=== PATIENT | male | born 1950 | race Two or more races ===

== ENCOUNTER 2018-04-29 05:50 | Inpatient (IN) | payer OTHER ==
[2018-04-29] VITALS (12 sets, daily range): BP systolic 102–149; BP diastolic 61–81
[~2018-04-29] VITALS: Ht 162.6 cm; Wt 75.3 kg
[2018-04-29] MEDS ORDERED: Vancomycin 1gm/D5W 275ml IVPB ONE ×2 (06:00)
[2018-04-29] MEDS ORDERED: Pantoprazole Inj IVP ONE (06:00)
[2018-04-29 06:50] LABS: INR 1.1 (0.9-1.1)
[2018-04-29] MEDS ORDERED: FISH OIL CAP1000 MG ORAL (07:03)
[2018-04-29] MEDS ORDERED: METFORMIN HCL1000 M1 ORAL (07:03)
[2018-04-29] MEDS ORDERED: ACTOS15 MG ORAL (07:03)
[2018-04-29] MEDS ORDERED: PROSCAR5 MG ORAL (07:03)
[2018-04-29] MEDS ORDERED: ATORVASTATIN CA10 MG ORAL (07:03)
[2018-04-29] MEDS ORDERED: Midazolam 2mg/2ml Inj ONE (07:06)
[2018-04-29] MEDS ORDERED: fentaNYL 100 mcg/2 mL IV ONE (07:06)
[2018-04-29] MEDS ORDERED: Pantoprazole Inj ONE (07:17)
[2018-04-29] MEDS ORDERED: Zemuron 50mg/5ml Inj IV ONE (07:18)
[2018-04-29] MEDS ORDERED: Succinylcholine 20mg/ml 10ml vial ONE (07:18)
[2018-04-29] MEDS ORDERED: Thrombin 5000 units spray kit TOPIC ONE (07:20)
[2018-04-29] MEDS ORDERED: Gelfoam Size TOPIC ONE ×2 (07:20→07:45)
[2018-04-29] MEDS ORDERED: Heparin 1000 units/ml 1ml Vial ONE (07:20)
[2018-04-29] MEDS ORDERED: Bacitracin Oint 15gm Tube TOPIC ONE (07:20)
[2018-04-29] MEDS ORDERED: Bupivacaine w/Epi 0.5% 30ml Vial INJ ONE (07:20)
[2018-04-29] MEDS ORDERED: Thrombin 5000 units TOPIC ONE (07:20)
[2018-04-29] MEDS ORDERED: Bacitracin 50000 Units Vial ONE (07:21)
[2018-04-29] MEDS ORDERED: Gelfoam Absorbable 1gm powder pkt TOPIC ONE (07:21)
[2018-04-29] MEDS ORDERED: Sterile Water Irrig 1000ml IRRIG ONE (07:30)
[2018-04-29] MEDS ORDERED: LR 1000ml ONE (07:30)
[2018-04-29] MEDS ORDERED: Neostigmine 1mg/ml 10ml Inj ONE (07:30)
--- NOTE | 2018-04-29 07:47 | Pre-Procedure Note/Attestation ---
Pre-Procedure Note/Attestation Complete Prior to Procedure Planned Procedure: bilateral Procedure Narrative: Posterior lumbar decompression L4-5 bilateral, with interspinous fusion and posterolateral arthrodesis with allograft, autograft and iliac crest bone marrow aspirate. Attestation I attest that I discussed the nature of the procedure; its benefits; risks and complications; and alternatives (and the risks and benefits of such alternatives ), prior to the procedure, with the patient (or the patient's legal bilingual inside sales representative). I attest that, if there was a reasonable possibility of needing a blood transfusion, the patient (or the patient's legal bilingual inside sales representative) was given the [facility] standardized written summary, pursuant to the Karthikeyan Nimmons Blood Safety Act ([place] Health and Safety Code # 1645, as amended). I attest that I re-evaluated the patient just prior to the surgery and that there has been no change in the patient's H&P, except as documented below: Imer Freedman MD Apr 29, 2018 07:47
[2018-04-29] MEDS ORDERED: NS Irrig 1000ml IRRIG ONE (07:52)
[2018-04-29] MEDS ORDERED: Morphine Sulfate 10mg/ml Inj ONE (08:44)
[2018-04-29] MEDS ORDERED: Glycopyrrolate 0.2mg/ml 1ml Vial ONE (08:46)
[2018-04-29] MEDS ORDERED: Phenylephrine 10mg/ml Vial ONE (08:52)
[2018-04-29] MEDS ORDERED: LR 1000ml 1,000 ML IVLG SCH (09:03)
--- NOTE | 2018-04-29 09:03 | Anethesia Preoperative Eval ---
Anesthesia Pre-op PMH/ROS General Date of Evaluation: Apr 29, 2018 Time of Evaluation: 07:22 Anesthesiologist: Carlito ASA Score: ASA 3 Mallampati Score Class I : Soft palate, uvula, fauces, pillars visible Class II: Soft palate, uvula, fauces visible Class III: Soft palate, base of uvula visible Class IV: Only hard plate visible Mallampati Classification: Class II Surgeon: Jasmina Diagnosis: Lumbar radiculopathy Surgical Procedure: L4-L5 laminotomy Anesthesia History: none Social History: current smoker Family History: no anesthesia problems Allergies: Coded Allergies: No Known Allergies (Unverified , 04/28/18) Medications: see eMAR Patient NPO?: Yes NPO Date: Apr 28, 2018 NPO Time: 2029 Past Medical History Cardiovascular: Reports: HTN - borderline, other - PVD R fem-pop bypass; Denies: CAD, CO, valve dz, arrhythmia Pulmonary: Reports: COPD - mild, life long h/o smoking Gastrointestinal/Genitourinary: Reports: GERD; Denies: CRI, ESRD, other Neurologic/Psychiatric: Reports: other - chronic pain; Denies: dementia, CVA, depression/anxiety, TIA Endocrine: Reports: DM - stable on pills; Denies: hypothyroidism, steroids, other HEENT: Reports: cataract (L), cataract (R) - s/p Sx Hematology/Immune: Denies: anemia, DVT, bleeding disorder, other Musculoskeletal/Integumentary: Reports: DJD; Denies: OA, RA, DDD, edema, other PMH Narrative: as above PSxH Narrative: Bilateral cataracts, R fem-pop bypass Anesthesia Pre-op Phys. Exam Physician Exam Last Vital Signs Date Time Temp Pulse Resp B/P (MAP) Pulse Ox O2 Delivery O2 Flow Rate FiO2 04/29/18 07:04 Room Air 04/29/18 06:38 97.8 58 18 149/79 (102) 97 Constitutional: NAD Neurologic: CN 2-12 intact Cardiovascular: RRR, no M/R/G Respiratory: CTA Gastrointestinal: S/NT/ND Airway Exam Mallampati Score: Class II MO: limited Neck: stiff ROM: limited Teeth: missing Dentures: upper, lower Anesthesia Pre-op A/P Labs Coagulation Test 04/29/18 06:15 Prothrombin Time 11.5 SEC (9.30-11.50) Prothromb Time International Ratio 1.1 (0.9-1.1) Activated Partial Thromboplast Time 27 SEC (23-33) Studies Pre-op Studies: EKG - NSR, CXR - WNL, PFTS - mild obstructive pattern Risk Assessment & Plan Assessment: ASA 3 Plan: GA with ETT prone position neuromonitoring Status Change Before Surgery: No Pre-Antibiotics Drug: Vanco 1gr Given Within 1 Hr of Incision: Yes Time Given: 08:20 Rajesh Esteban MD Apr 29, 2018 09:03
[2018-04-29] MEDS ORDERED: Acetaminophen (Non formulary) 100 ML IV ONE (09:15)
[2018-04-29] MEDS ORDERED: Ketorolac 30mg Inj IV PRN (09:15)
[2018-04-29] MEDS ORDERED: DiphenhydrAMINE 50mg/ml Inj IVP PRN (09:15)
--- NOTE | 2018-04-29 10:20 | Brief Operative Note ---
Immediate Post Operative Note Operative Note Chief Complaint: intactable low back pain. difficulty ambulating, radiculopathy Pre-op Diagnosis: 1. Intractable low back pain 2. Herniated disc and lumbar stenosis L4-5 3. lackk of improvement from conservative care and LEDSI Procedure: 1. Bilateral L4 hemilaminectomies, with central and lateral recess decompression. 2. bilteral foraminotomies, L4-5 3. Interspinous 12 mm titanium cage, Beneif with arthrodesis using two parallel plates 4. lamia and posterolateral arthrodesis, using allograft, autograft and iliac crest bone marrow aspirate. 5. Aspiration of bone marrow Right iliac crest 6. [place] of local bone from laminectomy 7. Microdissection with neurolysis of the L5 roots bilaterally 8. Neuromonitoring 9. Intra-op use, interpretation and supervision of fluoroscopy 10. plastic surgical closure of 6-cm lumbar incision Post-op Diagnosis: same as pre-op Findings: consistent w/pre-op dx studies Surgeon: Imer Freedman MD Financial Reporting Advisor: Khadar Smiley MD Anesthesiologist: Dr. Kellogg Anesthesia: general Specimen: none Complications: none Condition: stable Fluids: 700 cc Estimated Blood Loss: minimal Drains: none Implant(s) used?: Yes - Benefix interspinous device. Imer Freedman MD Apr 29, 2018 10:20
--- NOTE | 2018-04-29 10:24 | Immediate Post-Op Evaluation ---
Immediate Post-Op Evalulation Immediate Post-Op Evalulation Procedure: L4-L5 laminotomy with decompression and interbody fusion Date of Evaluation: Apr 29, 2018 Time of Evaluation: 10:22 IV Fluids: 800 Blood Products: none Estimated Blood Loss: 50 Urinary Output: 100 Blood Pressure Systolic: 138 Blood Pressure Diastolic: 76 Pulse Rate: 86 Respiratory Rate: 20 O2 Sat by Pulse Oximetry: 98 Temperature (Fahrenheit): 97.6 Pain Score (1-10): 1 Nausea: No Vomiting: No Complications none Patient Status: reacts, patent, extubated, none Hydration Status: adequate Rajesh Esteban MD Apr 29, 2018 10:24
[2018-04-29] MEDS ORDERED: traMADol 50mg tab ORAL PRN (10:30)
[2018-04-29] MEDS ORDERED: Milk of Magnesia 30ml Ud ORAL PRN (10:30)
[2018-04-29] MEDS ORDERED: HYDROmorphone 1mg/ml Carpuject IVP PRN (10:30)
[2018-04-29] MEDS: Hydromorphone 0.5mg/0.5ml inj IVP PRN ×2 (10:34→10:52)
--- NOTE | 2018-04-29 10:46 | General Progress Note ---
Progress Note Progress Note S/ Incisional pain controlled. Comfortable O/VS: Last 24 Hour Vital Signs Date Time Temp Pulse Resp B/P (MAP) Pulse Ox O2 Delivery O2 Flow Rate FiO2 04/29/18 10:34 58 16 127/70 98 Simple Mask 6 04/29/18 10:30 68 16 132/63 98 Simple Mask 6 04/29/18 10:25 80 16 147/81 98 Simple Mask 6 04/29/18 10:24 86 20 98 04/29/18 10:20 97.0 101 23 140/81 100 Simple Mask 6 04/29/18 07:04 Room Air 04/29/18 06:38 97.8 58 18 149/79 (102) 97 Alert and oriented x 3 Moves all extremities well dressing dry and intact Normal pulses in the upper and lowers doing well family updated lumbar brace Imer Freedman MD Apr 29, 2018 10:46
[2018-04-29] MEDS ORDERED: metFORMIN 500mg tab ORAL SCH (11:30)
[2018-04-29] MEDS ORDERED: Cyclobenzaprine 10mg Tab ORAL PRN (14:15)
--- NOTE | 2018-04-29 14:36 | General Progress Note ---
Progress Note Progress Note Neurosurgery S/ Pain well contolled. No leg pain Vs: Last 24 Hour Vital Signs Date Time Temp Pulse Resp B/P (MAP) Pulse Ox O2 Delivery O2 Flow Rate FiO2 04/29/18 11:15 97.8 56 15 124/65 98 Nasal Cannula 6 04/29/18 11:05 56 19 120/62 98 Simple Mask 6 04/29/18 11:04 97.3 04/29/18 10:52 54 15 102/62 98 Simple Mask 6 04/29/18 10:45 57 13 117/61 98 Simple Mask 6 04/29/18 10:34 58 16 127/70 98 Simple Mask 6 04/29/18 10:30 68 16 132/63 98 Simple Mask 6 04/29/18 10:25 80 16 147/81 98 Simple Mask 6 04/29/18 10:24 86 20 98 04/29/18 10:20 97.0 101 23 140/81 100 Simple Mask 6 04/29/18 07:04 Room Air 04/29/18 06:38 97.8 58 18 149/79 (102) 97 Alert and oriented x 4 Incision is dry and clean moves all extremities well PT D/c bernabe in am lumbar brace d/c planning reviewed with family and nursing Imer Freedman MD Apr 29, 2018 14:36
[2018-04-29] MEDS: Artificial Tears 1.4% Op Soln BOTH EYES SCH ×2 (15:33→18:28)
[2018-04-29] MEDS: NS w/KCl 20mEq 1,000 ML IV SCH (15:37)
[2018-04-29] MEDS: Acetaminophen (Non formulary) 100 ML IV SCH ×2 (15:42→21:55)
--- NOTE | 2018-04-29 15:43 | Diagnostic Imaging Report ---
Indication: Intraoperative imaging Comparison: None Findings: 3 fluoroscopic views of the lumbar spine were obtained. Localization image followed by placement of the interspinous prosthesis at L4-5 noted on fluoroscopically obtained images. IMPRESSION: Intraoperative imaging
[2018-04-29] MEDS ORDERED: Docusate 100mg cap ORAL SCH (18:00)
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
[2018-04-29] MEDS: Docusate Sod/Senna tab ORAL SCH (18:26)
[2018-04-29] MEDS: Vancomycin 1 GM in D5W 275 ML IVPB SCH (21:32)
[2018-04-30] MEDS: NS w/KCl 20mEq 1,000 ML IV SCH ×2 (04:52→15:41)
[2018-04-30 08:00] VITALS: BP 164/92
[2018-04-30 08:21] LABS: ANION GAP 6 mmol/L (5-15); BLOOD UREA NITROGEN 6 mg/dL (7-18); CALCIUM 8.2 MG/DL (8.5-10.1); CARBON DIOXIDE 28 MMOL/L (21-32); CHLORIDE 107 MMOL/L (98-107); CREATININE 0.8 MG/DL (0.55-1.30); POTASSIUM 4.2 MMOL/L (3.5-5.1); SODIUM 141 MMOL/L (136-145)
[2018-04-30] MEDS: Docusate Sod/Senna tab ORAL SCH ×2 (08:34→17:26)
[2018-04-30] MEDS: Vancomycin 1 GM in D5W 275 ML IVPB SCH (08:35)
[2018-04-30] MEDS: metFORMIN 500mg tab ORAL SCH (08:35)
[2018-04-30 09:50] VITALS: BP 151/82
[2018-04-30] MEDS: HYDROcodone/Acetamin 7.5/325 tab ORAL PRN (11:19)
--- NOTE | 2018-04-30 12:17 | 48 Hour Post Anesthesia Eval ---
Post Anesthesia Evaluation Procedure: L4-L5 laminotomy with decompression and interbody fusion Date of Evaluation: Apr 30, 2018 Airway: patent Nausea: No Vomiting: No Pain Intensity: 0 Hydration Status: adequate Cardiopulmonary Status: at baseline Mental Status/LOC: patient returned to baseline Post-Anesthesia Complications: 0 Follow-up care needed: N/A - further carre as per primary team Hina Mcginnis MD Apr 30, 2018 12:17
[2018-04-30 16:00] VITALS: BP 156/79
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
[2018-04-30] MEDS: Artificial Tears 1.4% Op Soln BOTH EYES PRN (17:27)
[2018-04-30 20:00] VITALS: BP 153/78
[2018-05-01 08:00] VITALS: BP 160/85
[2018-05-01] MEDS: Docusate Sod/Senna tab ORAL SCH ×2 (08:34→17:35)
[2018-05-01] MEDS: metFORMIN 500mg tab ORAL SCH (08:34)
[2018-05-01] MEDS: HYDROcodone/Acetamin 7.5/325 tab ORAL PRN ×2 (08:35→17:38)
[2018-05-01 10:18] VITALS: BP 138/77
[2018-05-01 12:00] VITALS: BP 137/80
[2018-05-01] MEDS ORDERED: Tubing IV Secondary IV ONE (14:38)
[2018-05-01 16:00] VITALS: BP 124/75
[2018-05-01 20:00] VITALS: BP 132/82
[2018-05-01 22:00] VITALS: BP 137/77
[2018-05-02 04:00] VITALS: BP 142/78
[2018-05-02] MEDS: HYDROcodone/Acetamin 7.5/325 tab ORAL PRN ×2 (06:18→20:53)
[2018-05-02] MEDS: Artificial Tears 1.4% Op Soln BOTH EYES PRN (06:21)
[2018-05-02 08:00] VITALS: BP 148/79
[2018-05-02] MEDS: metFORMIN 500mg tab ORAL SCH (08:31)
[2018-05-02] MEDS: Docusate Sod/Senna tab ORAL SCH ×2 (08:31→17:10)
[2018-05-02 12:00] VITALS: BP 159/91
[2018-05-02 16:00] VITALS: BP 135/79
[2018-05-02 20:00] VITALS: BP 130/80
[2018-05-03 08:00] VITALS: BP 163/63
[2018-05-03] MEDS: metFORMIN 500mg tab ORAL SCH (08:53)
[2018-05-03] MEDS: HYDROcodone/Acetamin 7.5/325 tab ORAL PRN ×2 (08:53→20:41)
[2018-05-03] MEDS: Docusate Sod/Senna tab ORAL SCH ×2 (08:55→17:57)
[2018-05-03] MEDS: Artificial Tears 1.4% Op Soln BOTH EYES PRN (10:15)
[2018-05-03 12:00] VITALS: BP 126/70
[2018-05-03 16:00] VITALS: BP 138/81
[2018-05-03 20:00] VITALS: BP 147/80
--- NOTE | 2018-05-03 20:22 | General Progress Note ---
Progress Note Progress Note Neurosurgery Follow up S/ Ambulate several times. Noleg pain O/ Vs; Last 24 Hour Vital Signs Date Time Temp Pulse Resp B/P (MAP) Pulse Ox O2 Delivery O2 Flow Rate FiO2 05/03/18 16:00 97.2 63 20 138/81 (100) 98 05/03/18 12:00 97.9 65 18 126/70 (88) 96 05/03/18 09:41 98.1 05/03/18 08:30 Room Air 05/03/18 08:00 98.5 88 20 163/63 (96) 95 05/02/18 21:00 Room Air Alert and oriented x 4 Incision is C/D/I Moves all extremities well normal sensation dong well Pt ambulate pain control D/c planning discussed with nursing and family. Imer Freedman MD May 03, 2018 20:22
[2018-05-04] MEDS: Artificial Tears 1.4% Op Soln BOTH EYES PRN (07:19)
[2018-05-04] MEDS: HYDROcodone/Acetamin 7.5/325 tab ORAL PRN ×2 (07:21→22:00)
[2018-05-04 08:00] VITALS: BP 133/77
[2018-05-04 08:40] LABS: EOSINOPHILS % (AUTO) 4.2 % (0.0-3.0); HEMATOCRIT 47.4 % (42.0-52.0); HEMOGLOBIN 15.8 G/DL (14.2-18.0); LYMPHOCYTES % (AUTO) 21.9 % (20.0-45.0); MEAN CORPUSCULAR VOLUME 91 FL (80-99); MONOCYTES % (AUTO) 7.6 % (1.0-10.0); NEUTROPHILS % (AUTO) 65.3 % (45.0-75.0); PLATELET COUNT 298 K/UL (150-450); RED BLOOD COUNT 5.21 M/UL (4.70-6.10); RED CELL DISTRIBUTION WIDTH 12.4 % (11.6-14.8); WHITE BLOOD COUNT 8.6 K/UL (4.8-10.8)
[2018-05-04] MEDS: Docusate Sod/Senna tab ORAL SCH ×2 (08:47→18:00)
[2018-05-04] MEDS: metFORMIN 500mg tab ORAL SCH (08:48)
[2018-05-04 09:13] LABS: ANION GAP 10 mmol/L (5-15); BLOOD UREA NITROGEN 12 mg/dL (7-18); CALCIUM 9.4 MG/DL (8.5-10.1); CARBON DIOXIDE 28 MMOL/L (21-32); CHLORIDE 101 MMOL/L (98-107); CREATININE 0.9 MG/DL (0.55-1.30); POTASSIUM 4.1 MMOL/L (3.5-5.1); SODIUM 139 MMOL/L (136-145)
[2018-05-04 20:00] VITALS: BP 127/78
[2018-05-05 08:10] VITALS: BP 136/70
[2018-05-05] MEDS: Docusate Sod/Senna tab ORAL SCH (09:28)
[2018-05-05] MEDS: metFORMIN 500mg tab ORAL SCH (09:29)
[2018-05-05] MEDS: Artificial Tears 1.4% Op Soln BOTH EYES PRN (09:30)
[2018-05-05 12:00] VITALS: BP 145/69
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
== END 2018-05-05 13:00 | disposition home health service (06) | DRG 460 ==
LOC: SDSOVERFLO 05:50 → 3E 11:42
DX: M51.16 Intervertebral disc disorders with radiculopathy, lumbar region (principal); G99.2 Myelopathy in diseases classified elsewhere; M48.061 Spinal stenosis, lumbar region without neurogenic claudication; V89.2XXS Person injured in unspecified motor-vehicle accident, traffic, sequela; E11.9 Type 2 diabetes mellitus without complications; E78.5 Hyperlipidemia, unspecified; I73.9 Peripheral vascular disease, unspecified; Z79.84 Long term (current) use of oral hypoglycemic drugs; Z79.82 Long term (current) use of aspirin
CPT/HCPCS: 36415; 72020; 76000; 80048; 82962; 85025; 85610; 85730; 86850; 86900; 86901; 87081; 94003; 94150; C9399; J2250; J2370; J2405; J2710